=== PATIENT | female | born 1985 | race Caucasian/White ===

== ENCOUNTER → 2022-11-19 11:47 | Outpatient (CLI) | payer OTHER, SELFPAY ==
--- NOTE | ~2022-11-19 | US_ITS ---
EXAMINATION: US soft tissue LE RT DATE: 11/19/2022 12:11 INDICATION: Right lower leg lump. TECHNIQUE: Multiple grayscale and Doppler ultrasound images of the right lower limb were obtained. COMPARISON: None FINDINGS: There is a 7 mm subcutaneous mass in the right lower limb there is isoechoic to subcutaneou s fat in the patient's area of concern with tract to the skin. IMPRESSION: 1. 7 mm subcutaneous mass in the patient's area of concern in right lower limb, most likely a sebaceo us cyst. Reviewed, dictated and finalized at location A. IMPRESSION: 1. 7 mm subcutaneous mass in the patient's area of concern in right lower limb, most likely a sebaceous cyst.
== END ==
PROVIDERS: PCP Student in an Organized Health Care Education/Training Program; Visit Provider Student in an Organized Health Care Education/Training Program
DX: R22.41 Localized swelling, mass and lump, right lower limb (principal)
CPT/HCPCS: 76882

== ENCOUNTER 2025-07-01 03:11 | Emergency (ER) | payer OTHER, SELFPAY ==
[2025-07-01] VITALS (8 sets, daily range): BP systolic 156–191; BP diastolic 82–101; PULSE 80–99; RESP 18–20; TEMP 36.8; O2SAT 97–100
--- NOTE | 2025-07-01 03:20 | ECG_ITS ---
Test Date: 2025-07-01 04:24:11 Measurements Intervals [place] Rate: 91 P: 37 DE: 151 QRS: 61 QRSD: 84 T: 58 QT: 330 QTc: 406 Interpretive Statements SINUS RHYTHM No previous ECG available for comparison Electronically Signed On 07-01-2025 10:17:03 [employer] by Carlos Paul D.O
--- NOTE | 2025-07-01 03:25 | ED_ITS ---
HPI - General Adult General Chief complaint: Unspecified Stated complaint: HTN Source: patient and EMS Mode of arrival: EMS History of Present Illness HPI narrative: This is a 31-year-old female with history of hypertension who presents the ED for hypertension. Patient states that she was woken up in her sleep feeling ?funny? and the nauseous. She went to the bathroom to attempt to throw up but then she felt some discomfort traveling up her back into her upper back. She checked her blood pressure at was 230s/120s prompting her to call EMS. She is currently on losartan and was recently prescribed metoprolol but was able to pick it up as it was not ready at the pharmacy yet. She reports that her symptoms are resolved at this time. Related Data Allergies Allergy/AdvReac Type Severity Reaction Status Date / Time bupropion Allergy Mild Rash Verified 07/01/25 03:34 cefadroxil Allergy Mild Rash Verified 07/01/25 03:34 isopropyl alcohol Allergy Unknown Rash Verified 07/01/25 03:34 Review of Systems 2 Review of Systems: Gen.: Denies fevers or chills Eyes: Denies eye pain or visual change ENT: Denies congestion Respiratory: Denies shortness of breath or cough CV: Denies chest pain or palpitations GI: Denies abdominal pain nausea, emesis or diarrhea denies burning, urgency, frequency or hematuria Musculoskeletal: Denies back pain or muscle pain Neuro: Denies numbness, tingling, weakness or focal weakness Skin: Denies rash Except as documented, all other systems reviewed and negative Exam 2 Narrative: APPEARANCE: No acute distress, nontoxic, resting in bed EYES: EOMI HEENT: Normocephalic, atraumatic, OMM RESPIRATORY: No respiratory distress Clear to auscultation bilaterally with no rhonchi wheezing or rales. CARDIOVASCULAR: Regular rate and rhythm without murmurs rubs or gallops. ABDOMINAL: Soft, nontender, nondistended, no rebound or guarding MUSCULOSKELETAl: Moves all extremities. No clubbing, cyanosis or edema. NEURO: Awake and alert. Following commands, speech normal, no focal deficits SKIN:: Warm, dry. No rashes lesions or abrasions PSYCHIATRIC: Normal affect/mood, Course Vital Signs Vital signs: Vital Signs Temperature 98.3 F 07/01/25 03:16 Pulse Rate 99 07/01/25 03:16 Respiratory Rate 20 07/01/25 03:16 Blood Pressure 191/101 H 07/01/25 03:16 Pulse Oximetry 100 07/01/25 03:16 Oxygen Delivery Room Air 07/01/25 03:16 Temperature 98.3 F 07/01/25 03:16 Pulse Rate 91 07/01/25 04:50 Respiratory Rate 20 07/01/25 03:16 Blood Pressure 166/82 H 07/01/25 05:31 Pulse Oximetry 99 07/01/25 05:31 Oxygen Delivery Room Air 07/01/25 03:16 Medical Decision Making MDM Narrative Medical decision making narrative: 39-year-old female Presenting for hypertension. On initial evaluation patient was in no acute distress afebrile, hemodynamic stable. Differentials include but are not limited to: Hypertensive urgency, hypertensive emergency, ACS, anxiety Notable exam findings: Nonfocal neuro exam, heart and lungs clear. Abdomen soft and nontender I personally reviewed the patient's lab result. Notable lab findings: Mild leukocytosis at 10.8. Mild transaminitis. UA did show bacteria but patient has no symptoms so this will not be treated I personally reviewed the patient's EKGs: 07/01/2025 at 4:24 a.m.: Normal sinus rhythm, normal axis, normal intervals, no acute ST or T-wave changes Patient's symptoms had resolved prior to her arriving to the ED. Her initial blood pressure was improved compared to her blood pressure at home which was 230s/110s. Patient was supposed to be on metoprolol but the pharmacy did not have a ready for her yet. She was given a dose of metoprolol here. Her blood pressure remained in the 160s/80s. She remained otherwise asymptomatic. She will be given a short course of metoprolol tartrate in the event that her succinate is not ready. Patient was agreeable to this plan. Given strict return precautions. Vital Signs Vital Signs: Vital Signs Temperature 98.3 F 07/01/25 03:16 Pulse Rate 99 07/01/25 03:16 Respiratory Rate 07/01/25 03:16 Blood Pressure 191/101 H 07/01/25 03:16 Pulse Oximetry 100 07/01/25 03:16 Oxygen Delivery Room Air 07/01/25 03:16 Temperature 98.3 F 07/01/25 03:16 Pulse Rate 91 07/01/25 04:50 Respiratory Rate 20 07/01/25 03:16 Blood Pressure 166/82 H 07/01/25 05:31 Pulse Oximetry 99 07/01/25 05:31 Oxygen Delivery Room Air 07/01/25 03:16 Lab Data Lab results reviewed: Yes I reviewed the patient's lab results. 07/01/25 04:44 07/01/25 03:56 Labs: Lab Results 07/01/25 07/01/25 07/01/25 Range/Units 03:56 04:44 04:50 WBC 10.8 H (4.5-10.0) K/mm3 RBC 4.73 (4.2-5.4) M/mm3 Hgb 14.1 (12.0-15.0) g/dL Hct 41.6 (37.0-47.0) % MCV 87.9 (80-100) fl MCH 29.8 (26-34) pg MCHC 33.9 (32-36) g/dl RDW 12.6 (11.5-14.5) % Plt Count 330 (150-375) k/mm3 MPV 9.9 (7.4-10.4) fl Immature Gran % (Auto) 0.3 (0-0.5) % Neut % (Auto) 69.1 (45.5-73.1) % Lymph % (Auto) 24.4 (18.3-44.2) % [place] % (Auto) 4.7 (2.6-8.5) % Eos % (Auto) 0.9 (0-4.4) % Baso % (Auto) 0.6 (0.2-1.2) % Lymph # (Auto) 2.63 (0.9-3.2) K/mm3 [place] # (Auto) 0.5 (0.1-0.6) K/mm3 Eos # (Auto) 0.1 (0-0.3) K/mm3 Baso # (Auto) 0.1 (0.0-0.1) K/mm3 Abs Immat Gran (auto) 0.03 (0.00-0.031) K/mm3 Absolute Neuts (auto) 7.4 H (1.3-6.7) K/mm3 Absolute Nucleated RBC 0.000 (0.0-0.012) K/mm3 Nucleated RBC % 0.0 (0.0-0.2) % Sodium 136 L (137-145) mmol/L Potassium 4.6 (3.4-5.0) mmol/L Chloride 107 (98-107) mmol/L Carbon Dioxide 18 L (22-30) mmol/L Anion Gap 11 (4-12) mmol/L BUN 22 H (7-17) mg/dL Creatinine 0.63 L (0.7-1.0) mg/dL Estim Creat Clear Calc 149 ml/min Estimated GFR > 60 (59 - ) Glucose 189 H (65-110) mg/dL Calcium 8.9 (8.4-10.2) mg/dL Total Bilirubin 0.7 (0.2-1.3) mg/dL AST 40 H (14-36) U/L ALT 48 H (6-35) U/L Alkaline Phosphatase 82 (38-126) U/L Troponin I < 0.012 (0.000-0.034) ng/mL Total Protein 7.6 (6.3-8.2) g/dL Albumin 4.3 (3.5-5.1) g/dL Urine Color Yellow (Yellow) Urine Appearance Cloudy H (Clear) Urine pH 5.0 (5.0-9.0) Ur Specific [place] 1.025 (1.001-1.035) Urine Protein Negative (Negative) mg/dL Urine Glucose (UA) Negative (Negative) mg/dL Urine Ketones 1+ H (Negative) mg/dL Ur Blood (Man) Negative (Negative) Urine Nitrate Negative (Negative) Urine Bilirubin Negative (Negative) Urine Urobilinogen 0.2 (<2.0) mg/dL Add Ur Microanalysis Reviewed Leukocyte Esterase Rfl Trace H (Negative) MIRIAM/UL Urine RBC 11-20 H (0-2) /hpf Urine WBC 0-5 (0-3) /hpf Ur Squamous Epith Cells Few (Few) /hpf Urine Bacteria 1+ H /hpf Urine Casts 0-2 POC Urine HCG, Qual (Negative) 07/01/25 Range/Units 04:57 WBC (4.5-10.0) K/mm3 RBC (4.2-5.4) M/mm3 Hgb (12.0-15.0) g/dL Hct (37.0-47.0) % MCV (80-100) fl MCH (26-34) pg MCHC (32-36) g/dl RDW (11.5-14.5) % Plt Count (150-375) k/mm3 MPV (7.4-10.4) fl Immature Gran % (Auto) (0-0.5) % Neut % (Auto) (45.5-73.1) % Lymph % (Auto) (18.3-44.2) % [place] % (Auto) (2.6-8.5) % Eos % (Auto) (0-4.4) % Baso % (Auto) (0.2-1.2) % Lymph # (Auto) (0.9-3.2) K/mm3 [place] # (Auto) (0.1-0.6) K/mm3 Eos # (Auto) (0-0.3) K/mm3 Baso # (Auto) (0.0-0.1) K/mm3 Abs Immat Gran (auto) (0.00-0.031) K/mm3 Absolute Neuts (auto) (1.3-6.7) K/mm3 Absolute Nucleated RBC (0.0-0.012) K/mm3 Nucleated RBC % (0.0-0.2) % Sodium (137-145) mmol/L Potassium (3.4-5.0) mmol/L Chloride (98-107) mmol/L Carbon Dioxide (22-30) mmol/L Anion Gap (4-12) mmol/L BUN (7-17) mg/dL Creatinine (0.7-1.0) mg/dL Estim Creat Clear Calc ml/min Estimated GFR (59 - ) Glucose (65-110) mg/dL Calcium (8.4-10.2) mg/dL Total Bilirubin (0.2-1.3) mg/dL AST (14-36) U/L ALT (6-35) U/L Alkaline Phosphatase (38-126) U/L Troponin I (0.000-0.034) ng/mL Total Protein (6.3-8.2) g/dL Albumin (3.5-5.1) g/dL Urine Color (Yellow) Urine Appearance (Clear) Urine pH (5.0-9.0) Ur Specific [place] (1.001-1.035) Urine Protein (Negative) mg/dL Urine Glucose (UA) (Negative) mg/dL Urine Ketones (Negative) mg/dL Ur Blood (Man) (Negative) Urine Nitrate (Negative) Urine Bilirubin (Negative) Urine Urobilinogen (<2.0) mg/dL Add Ur Microanalysis Leukocyte Esterase Rfl (Negative) MIRIAM/UL Urine RBC (0-2) /hpf Urine WBC (0-3) /hpf Ur Squamous Epith Cells (Few) /hpf Urine Bacteria /hpf Urine Casts POC Urine HCG, Qual Negative (Negative) Discharge Plan Discharge Clinical Impression: Hypertension Qualifiers: Hypertension type: unspecified Qualified Code(s): I10 - Essential (primary) hypertension Patient Disposition: Home Condition: Stable Instructions: Antibiotic Form, Hypertension (ED) Additional Instructions: Take metoprolol as prescribed. If [facility] has your prescription from PCP take that instead. Return to the ED for any new or worsening symptoms. Patient Language: [place] Prescriptions: New metoprolol tartrate 25 mg tablet 25 mg PO BID Qty: 14 0RF Follow-up/Referrals: Vivian,DO Gunnar [Primary Care Provider] Stand Alone Forms: Work/School Release IP
[2025-07-01 04:14] LABS: Alanine Aminotransferase 48 U/L (6-35); Albumin Level 4.3 g/dL (3.5-5.1); Alkaline Phosphatase 82 U/L (38-126); Anion Gap 11 mmol/L (4-12); Aspartate Amino Transferase 40 U/L (14-36); Bilirubin,Total 0.7 mg/dL (0.2-1.3); Blood Urea Nitrogen 22 mg/dL (7-17); Calcium 8.9 mg/dL (8.4-10.2); Carbon Dioxide 18 mmol/L (22-30); Chloride 107 mmol/L (98-107); Estimated CRCL calculation 149 ml/min; Estimated Glomerular Filt Rate > 60; Glucose 189 mg/dL (65-110); Potassium 4.6 mmol/L (3.4-5.0); Sodium 136 mmol/L (137-145); Total Protein 7.6 g/dL (6.3-8.2)
[2025-07-01 04:27] LABS: Troponin I < 0.012 ng/mL (0.000-0.034)
[2025-07-01] MEDS: METOPROLOL TARTRATE 25 MG TABLET PO (04:50)
[2025-07-01 04:56] LABS: Hematocrit 41.6 % (37.0-47.0); Hemoglobin 14.1 g/dL (12.0-15.0); Immature Granulocyte Percent A 0.3 % (0-0.5); Lymphocytes Absolute Auto 2.63 K/mm3 (0.9-3.2); Mean Corpuscular HGB Conc 33.9 g/dl (32-36); Mean Corpuscular Hemoglobin 29.8 pg (26-34); Mean Corpuscular Volume 87.9 fl (80-100); Nucleated Red Blood Cells Absolute Auto 0.000 K/mm3 (0.0-0.012); Nucleated Red Blood Cells Perc 0.0 % (0.0-0.2); Platelet Count Result 330 k/mm3 (150-375); Red Blood Count 4.73 M/mm3 (4.2-5.4); White Blood Count 10.8 K/mm3 (4.5-10.0)
[2025-07-01 04:59] LABS: BEDSIDEPREGUCG Negative (Negative)
[2025-07-01 05:28] LABS: Add Urine Microscopic? YES; Appearance Urine Cloudy (Clear); Glucose Urine UA Negative (Negative); Leukocyte Esterase Ur Trace LEU/UL (Negative); Need Manual Microscopic Reviewed; Nitrate Urine Negative (Negative); Non Pathogenic Casts 0-2; Specific Grav Ur 1.025 (1.001-1.035)
== END 2025-07-01 05:55 | disposition home or self-care (01) ==
PROVIDERS: Emergency Provider Student in an Organized Health Care Education/Training Program; PCP Student in an Organized Health Care Education/Training Program
DX: I10 Essential (primary) hypertension (principal)
CPT/HCPCS: 36415; 80053; 81001; 81025; 84484; 85025; 93005; 99284; A9270